=== PATIENT | male | born 1975 | race Caucasian/White ===

== ENCOUNTER → 2020-03-01 | Outpatient (CLI) | payer BC ==
--- NOTE | 2020-03-01 16:10 | KCIC ---
MRI Lumbar Spine without contrast History: Lumbar back pain, bilateral lower extremity numbness and tingling Technique: Multiplanar, multi sequential noncontrast MR imaging was performed of the lumbar spine. Comparison: None Findings: There is superior, anterior L5 Schmorl's node, tiny inferior L2 Schmorl's node which is associated with minimal edema. Otherwise lumbar vertebral body stature is maintained. There is very mild grade 1 anterior spondylolisthesis L4-5, negligible anterior spondylolisthesis L3-4. There is [id number] degenerative disc disease at L4-5 and minimally at L2-3, mild disc desiccation L3-4 and L5-S1. There is prominent edema of the posterior subcutaneous fat of the lower back. L1-L2: Spinal canal and neural foramina are adequate. L2-L3: There is prominence of posterior epidural fat centrally. There is mild facet hypertrophic change. There is posterior right paracentral protrusion about 2 to 3 mm AP. There is mild indentation upon the ventral thecal sac. Combination of findings results in overall mild spinal stenosis, posterior attenuation of the thecal sac from posterior epidural lipomatosis. Neural foramina are adequate. L3-L4: There is mild prominence of posterior epidural fat centrally. There is minimal facet degenerative change. Neural foramina and spinal canal are adequate. L4-L5: There is mild prominence of posterior epidural fat. Spinal canal and neural foramina are adequate. L5-S1: There is prominence of epidural fat in the lateral recesses bilaterally, limited preserved central subarachnoid space. Otherwise spinal canal is overall adequate. There is very shallow protrusion in the left lateral recess with associated small annular tear without significant neural impingement. There is mild neural foramina compromise bilaterally. Impression: 1. There is mild spinal stenosis at L2-3, attenuation of the thecal sac in part from posterior epidural lipomatosis. Epidural lipomatosis at L5-S1 results in partial effacement of the subarachnoid space. 2. There is [id number] degenerative disc disease at L4-5, minimally at other levels. 3. There is mild abnormal alignment as stated. Electronically signed by: John Viveros MD (03/01/2020 4:07 PM) [id number]
== END ==
LOC: KCIC MRI 14:10
PROVIDERS: ATTEND Family Medicine
DX: M51.36 Other intervertebral disc degeneration, lumbar region (principal); M48.061 Spinal stenosis, lumbar region without neurogenic claudication; E88.2 Lipomatosis, not elsewhere classified; M43.16 Spondylolisthesis, lumbar region; M51.46 Schmorl's nodes, lumbar region
CPT/HCPCS: 72148